=== PATIENT | male | born 1960 | race Caucasian/White ===

== ENCOUNTER 2017-01-23 06:33 | Day surgery (SDC) | payer OTHER ==
[~2017-01-23] VITALS: Ht 180.3 cm; Wt 99.5 kg
[~2017-01-23 06:33] MED LIST: AZIT250T5 PO; CYCL-265 PO; FENO145T2 PO; HYDR-3702 PO; HYDR-3754 PO; IBP800T PO; LACTATED RINGERS 1,000 ML IV SCH; ROPI1TAB PO; SODIUM CHLORIDE FLUSH 3 ML SYR IV PRN
--- OUTSIDE RECORDS SUMMARY | 2017-01-23 06:37 | XMS REPORT | Continuity of Care Document ---
Author Author [facility] Address Unknown Phone Unavailable Allergies Active Description Code Type Severity Reaction Onset Reported/Identified Relationship to Patient Clinical Status Yes No Known Allergies [id number] N/A N/A Yes No Known Drug Allergies [id number] Drug Allergy Unknown N/ A 09/22/2012 Medications Problems Date Dx Coded Attending Type Code Diagnosis Diagnosed By 09/22/2012 Ot 079.99 VIRAL INFECTION NOS 09/22/2012 Ot 276.51 DEHYDRATION 09/22/2012 Ot 787.03 VOMITING ALONE 09/22/2012 Ot 787.91 DIARRHEA 09/22/2012 Ot 789.00 ABDOMINAL PAIN, UNSPECIFIED SITE 11/13/2012 Ot 724.2 LUMBAGO 09/17/2015 SOFIA WANG MD Ot M25.562 PAIN IN LEFT KNEE 09/17/2015 SOFIA WANG MD Ot S89.82XA OTHER SPECIFIED INJURIES OF LEFT LOWER L 09/17/2015 SOFIA WANG MD Ot X58.XXXA EXPOSURE TO OTHER SPECIFIED FACTORS , INI 09/17/2015 SOFIA WANG MD Ot Y92.[address] OF OCCURRENCE OF TH 09/17/2015 SOFIA WANG MD Ot Y99.0 CIVILIAN ACTIVITY DONE FOR INCOME OR PAY 09/28/2015 MARILYNN ZARATE MD Ot M12.562 09/28/2015 MARILYNN ZARATE MD Ot M12.562 10/05/2015 MARILYNN ZARATE MD Ot M12.562 11/21/2015 W S89.92XA Left knee injury, initial encounter 11/23/2015 W S83.242A Medial meniscus tear, left, initial encounter 11/23/2015 W S89.92XA Left knee injury, initial encounter 11/29/2015 W S83.242A Medial meniscus tear, left, initial encounter 11/29/2015 W S89.92XA Left knee injury, initial encounter 12/07/2015 W S83.242A Medial meniscus tear, left, initial encounter 12/07/2015 W S89.92XA Left knee injury, initial encounter 12/15/2015 ELLIOT MOROCHO, MARILYNN Peña Ot M12.562 12/22/2015 W S83.242A Medial meniscus tear, left, initial encounter 12/22/2015 W S89.92XA Left knee injury, initial encounter 01/05/2016 Xochilt MOROCHO, Osorio L Ot S83.242D 01/05/2016 Xochilt MOROCHO, Osorio L Ot Z47.89 01/08/2016 W S83.242A Medial meniscus tear, left, initial encounter 01/08/2016 W S89.92XA Left knee injury, initial encounter 01/09/2016 Xochilt MOROCHO, Osorio L Ot S83.242D 01/09/2016 Xochilt MOROCHO, Osorio L Ot Z47.89 01/09/2016 Xochilt MOROCHO, Osorio L Ot S83.242D 01/09/2016 Xochilt MOROCHO, Osorio L Ot Z47.89 01/12/2016 W S83.242A Medial meniscus tear, left, initial encounter 01/12/2016 W S89.92XA Left knee injury, initial encounter 01/12/2016 Xochilt MOROCHO, Osorio L Ot S83.242D 01/12/2016 Xochilt MOROCHO, Osorio L Ot Z47.89 01/15/2016 Xochilt MOROCHO, Osorio L Ot S83.242D 01/15/2016 Xochilt MOROCHO, Osorio L Ot Z47.89 01/15/2016 Xochilt MOROCHO, Osorio L Ot S83.242D OTH TEAR OF MEDIAL MENISCUS, CURRENT INJ 01/15/2016 Xocihlt MOROCHO, Osorio L Ot Z47.89 ENCOUNTER FOR OTHER ORTHOPEDIC AFTERCARE 08/21/2016 ROSAS GARCIA Ot J40 BRONCHITIS, NOT SPECIFIED ACUTE OR CH 08/23/2016 ROSAS GARCIA Ot J40 BRONCHITIS, NOT SPECIFIED ACUTE OR CH 09/15/2016 MARILYNN ZARATE MD Ot M12.562 TRAUMATIC ARTHROPATHY, LEFT KNEE 09/15/2016 ROSAS GARCIA Ot J40 BRONCHITIS, NOT SPECIFIED ACUTE OR CH 09/16/2016 MARILYNN ZARATE MD Ot M12.562 TRAUMATIC ARTHROPATHY, LEFT KNEE 09/16/2016 ROSAS GARCIA Ot J40 BRONCHITIS, NOT SPECIFIED ACUTE OR CH 09/23/2016 ELLIOT MOROCHO, [facility] M12.562 TRAUMATIC ARTHROPATHY, LEFT KNEE 09/23/2016 ROSAS GARCIA Ot J40 BRONCHITIS, NOT SPECIFIED ACUTE OR CH Procedures Code [place] [address] X-RAY EXAM KNEE 4 OR MORE 11/21/2015 36411 OFFICE/OUTPATIENT VISIT NEW 11/21/2015 86751 KNEE ARTHROSCOPY/SURGERY 12/15/2015 Results Encounters ACCT No. Visit Date/Time Discharge Status Pt. Type Provider Facility Loc./Unit Complaint [id number] 01/10/2016 15:15:00 2015 14:58:00 DIS Outpatient Xochilt MOROCHO, [facility] PT NEW/R MENISCUS REPAIR [id number] 09/22/2015 08:29:00 2014 23:59:59 CLS Outpatient ELLIOT MOROCHO, [facility] RAD LEFT KNEE TRAUMATIC ARTHROPATHY M12.562 [id number] 09/17/2015 12:28:00 2014 14:21:00 DIS Emergency KATHLEEN MOROCHO, [facility] ED WORK COMP/HOSPIRA [id number] 01/23/2017 06:33:00 ACT Outpatient JOSSELINE MOROCHO, [facility] ASC COLONOSCOPY [id number] 08/17/2016 09:05:00 ACT Outpatient RICKEY CHAU [facility]UC [id number] 11/13/2012 14:52:00 Document Registration [id number] 09/22/2012 20:21:00 Document Registration
[2017-01-23 07:07] VITALS: BP 143/99
[2017-01-23] MEDS ORDERED: MIDAZOLAM 2 MG/2 ML (VERSED) VIAL ONE (07:55)
[2017-01-23] MEDS ORDERED: ALFENTANIL 500 MCG/ML (ALFENTA) 5 ML AMP IV ONE ×2 (07:55)
[2017-01-23] MEDS ORDERED: PROPOFOL 20 ML IV ONE (07:55)
[2017-01-23 08:53] VITALS: BP 134/89
[2017-01-23 10:03] VITALS: BP 143/92
--- NOTE | 2017-01-23 12:05 | OPERATIVE REPORT ---
DATE OF OPERATION: 01/23/2017 PRE-OPERATIVE DIAGNOSIS: Screening colonoscopy. POST-OPERATIVE DIAGNOSIS: 1. Colon and rectal polyps. 2. Graves diverticulosis. OPERATIVE PROCEDURE: Total colonoscopy with polypectomy (endoscopic mucosal resection). SURGEON: Cornelius Yin MD ANESTHESIA: Monitored anesthesia care FINDINGS: 1. The bowel prep was excellent. 2. Two small polyps were noted, one at 60 cm in the descending colon, and one in the rectum. Both were removed using the saline lift technique. Path is pending. 3. There were a few widely scattered diverticula seen both in the proximal colon and in the distal colon. 4. No inflammation or angiodysplasia were seen. INDICATIONS: The patient is a 56-year-old referred by Dr. Garcia for colonoscopy screening. He hasn't had any bowel habit changes. His family history is negative for colorectal cancer. DESCRIPTION OF PROCEDURE: The patient was informed of the risks and benefits and agreed to proceed. He was placed in the left lateral decubitus position and administered IV sedation. When properly sedated a rectal exam was performed, which was normal. The lighted endoscope was passed into the rectum and advanced along the colon to the cecum. The ileocecal valve and appendiceal orifice were easily seen. The scope was slowly brought back through the ascending, transverse, descending and sigmoid colon. The diverticula were noted both proximally and distally. The polyp at 60 cm was removed using the saline lift and cautery snare, as was the one in the rectum. No other polyps or neoplasia were seen. The rectum was otherwise normal on retroflexion and regular view. The scope was removed completing the procedure. The patient tolerated the procedure without complications. Path is pending.
== END 2017-01-23 10:11 | disposition home or self-care (01) ==
LOC: ASC 06:33
PROVIDERS: ATTEND Surgery
DX: Z12.11 Encounter for screening for malignant neoplasm of colon (principal); D12.4 Benign neoplasm of descending colon; K62.1 Rectal polyp; K57.30 Diverticulosis of large intestine without perforation or abscess without bleeding; G47.30 Sleep apnea, unspecified; F17.200 Nicotine dependence, unspecified, uncomplicated
CPT/HCPCS: 45381; 45385; J2250; J7120